=== PATIENT | female | born 1930 ===

== ENCOUNTER 2016-06-07 12:27 | Inpatient (IN) | payer MEDICARE, OTHER ==
[~2016-06-07] VITALS: Ht 149.9 cm; Wt 51.2 kg
[2016-06-07] MEDS ORDERED: LOPERAMIDE 2 MG CAPSULE PO PRN (14:45)
[2016-06-07] MEDS ORDERED: SALINE FLUSH 10 ML FLUSH PRN (14:45)
[2016-06-07] MEDS ORDERED: FLEET ENEMA 132 ML BTL RECTAL PRN (14:45)
[2016-06-07] MEDS ORDERED: BISACODYL EC 5 MG TAB PO PRN (14:45)
[2016-06-07] MEDS ORDERED: ONDANSETRON 4 MG VIAL IV PRN (14:45)
[2016-06-07] MEDS ORDERED: BISACODYL 10 MG SUPP RECTAL PRN (14:45)
[2016-06-07] MEDS ORDERED: GUAIFEN/DM 10 ML UDC PO PRN (14:45)
[2016-06-07] MEDS ORDERED: ALU/MAG/SIM 30 ML UDC PO PRN (14:45)
[2016-06-07] MEDS ORDERED: MAG HYDROX 30 ML UDC PO PRN (14:45)
[2016-06-07] MEDS ORDERED: SODIUM CHLORIDE 0.9% 1,000 ML IV SCH (14:45)
[2016-06-07] MEDS ORDERED: CEFTRIAXONE 1 GM in SODIUM CHLORIDE 0.9% 50 ML IV ONE (14:50)
[2016-06-07] MEDS ORDERED: CEFTRIAXONE 1 GM VIAL ONE (15:19)
[2016-06-07] MEDS ORDERED: SODIUM CHLORIDE 0.9% 500 ML IV ONE (15:19)
[2016-06-07] MEDS ORDERED: ADD HEIGHT/WEIGHT/ALLERGY INFO XX SCH (16:28)
[2016-06-07] MEDS ORDERED: PNEUMO VAC 25 MCG/0.5 ML VL IM.VACC ONE (16:45)
[2016-06-07 16:52] VITALS: BP_SYST 114; RESP 18; TEMP 98.4
[2016-06-07 17:02] VITALS: Ht 149.9 cm; Wt 51.2 kg
[2016-06-07] MEDS: ACETAMINOPHEN 500 MG TAB PO SCH (17:49)
[2016-06-07 19:08] VITALS: BP_SYST 103; RESP 20; TEMP 98.2
[2016-06-07] MEDS ORDERED: SALINE FLUSH 10 ML FLUSH SCH (20:00)
[2016-06-07] MEDS: SACCHA BOULARDII 250MG CAP PO SCH (20:52)
[2016-06-07] MEDS: FAMOTIDINE 20 MG TAB PO SCH (20:53)
[2016-06-07] MEDS: TRAZODONE 50 MG TAB PO SCH (20:53)
[2016-06-07 22:40] VITALS: BP_SYST 118; RESP 18; TEMP 98.1
[2016-06-08] MEDS: ACETAMINOPHEN 500 MG TAB PO SCH ×3 (00:29→15:02)
[2016-06-08 00:52] VITALS: RESP 20
[2016-06-08 02:27] VITALS: BP_SYST 129; RESP 20; TEMP 98.5
[2016-06-08] MEDS ORDERED: SODIUM CHLORIDE 0.9% FLUSH BAG 500 ML IV SCH (06:00)
[2016-06-08 07:21] VITALS: BP_SYST 169; RESP 20; TEMP 98.3
[2016-06-08] MEDS: CEFTRIAXONE 1 GM in SODIUM CHLORIDE 0.9% 50 ML IV SCH (09:14)
[2016-06-08] MEDS: POTASSIUM CHLORIDE IV SCH ×2 (09:15→22:32)
[2016-06-08] MEDS: SACCHA BOULARDII 250MG CAP PO SCH ×2 (09:15→20:33)
[2016-06-08] MEDS: [UNRECOGNIZED DRUG - OTHER] IV SCH ×2 (09:15→22:32)
[2016-06-08] MEDS: DEXTROSE IV SCH ×2 (09:15→22:32)
[2016-06-08 11:30] VITALS: BP_SYST 160; RESP 20; TEMP 98.3
[2016-06-08 15:25] VITALS: BP_SYST 174; RESP 18; TEMP 98.7
[2016-06-08 19:37] VITALS: BP_SYST 162; RESP 16; TEMP 97.5
[2016-06-08] MEDS: FAMOTIDINE 20 MG TAB PO SCH (20:33)
[2016-06-08] MEDS: TRAZODONE 50 MG TAB PO SCH (20:33)
[2016-06-08] MEDS ORDERED: MISSING DOSE XX ONE (20:40)
[2016-06-09] VITALS (7 sets, daily range): BP systolic 104–169; RESP 16–20; TEMP 97.8–98.4
[2016-06-09] MEDS: ACETAMINOPHEN 500 MG TAB PO SCH ×3 (00:44→17:03)
[2016-06-09] MEDS ORDERED: MISSING DOSE XX ONE (06:45)
[2016-06-09] MEDS: SACCHA BOULARDII 250MG CAP PO SCH ×2 (08:17→20:32)
[2016-06-09] MEDS: CEFTRIAXONE 1 GM in SODIUM CHLORIDE 0.9% 50 ML IV SCH (08:18)
[2016-06-09] MEDS: amLODIPine 5 MG TAB PO SCH (11:21)
[2016-06-09] MEDS: POTASSIUM CHLORIDE IV SCH (17:03)
[2016-06-09] MEDS: [UNRECOGNIZED DRUG - OTHER] IV SCH (17:03)
[2016-06-09] MEDS: DEXTROSE IV SCH (17:03)
[2016-06-09] MEDS: FAMOTIDINE 20 MG TAB PO SCH (20:32)
[2016-06-09] MEDS: TRAZODONE 50 MG TAB PO SCH (20:32)
[2016-06-09] MEDS ORDERED: Atorvastatin 10 MG TAB PO SCH (21:00)
[2016-06-10] MEDS: ACETAMINOPHEN 500 MG TAB PO SCH ×2 (00:14→08:39)
[2016-06-10 03:10] VITALS: BP_SYST 148; RESP 18; TEMP 98.5
[2016-06-10] MEDS: POTASSIUM CHLORIDE IV SCH (07:32)
[2016-06-10] MEDS: [UNRECOGNIZED DRUG - OTHER] IV SCH (07:32)
[2016-06-10] MEDS: DEXTROSE IV SCH (07:32)
[2016-06-10 07:53] VITALS: BP_SYST 160; RESP 18; TEMP 98.2
[2016-06-10] MEDS: CEFTRIAXONE 1 GM in SODIUM CHLORIDE 0.9% 50 ML IV SCH (08:34)
[2016-06-10] MEDS: amLODIPine 5 MG TAB PO SCH (08:35)
[2016-06-10] MEDS: SACCHA BOULARDII 250MG CAP PO SCH (08:35)
[2016-06-10 11:51] VITALS: BP_SYST 161; RESP 18; TEMP 97.8
[2016-06-10 13:24] VITALS: BP_SYST 161; RESP 18; TEMP 97.8
[2016-06-10] MEDS ORDERED: MISSING DOSE XX ONE ×2 (14:00→14:55)
== END 2016-06-10 15:21 | disposition home or self-care (01) | DRG 689 ==
LOC: ENRESERVDT → ENRESERVTM → ER 12:27 → ENPENDDIS 16:13 → MERGE 16:13 → 4NT 16:13
PROVIDERS: ADMIT Family Medicine; ATTEND Family Medicine
PROC: 0HBRXZZ Excision of Toe Nail, External Approach (ICD-10-PCS; principal; 2016-06-10)
PROC: 0HBRXZZ Excision of Toe Nail, External Approach (ICD-10-PCS; 2016-06-10)
PROC: 0HBRXZZ Excision of Toe Nail, External Approach (ICD-10-PCS; 2016-06-10)
PROC: 0HBRXZZ Excision of Toe Nail, External Approach (ICD-10-PCS; 2016-06-10)
PROC: 0HBRXZZ Excision of Toe Nail, External Approach (ICD-10-PCS; 2016-06-10)
PROC: 0HBRXZZ Excision of Toe Nail, External Approach (ICD-10-PCS; 2016-06-10)
PROC: 0HBRXZZ Excision of Toe Nail, External Approach (ICD-10-PCS; 2016-06-10)
PROC: 0HBRXZZ Excision of Toe Nail, External Approach (ICD-10-PCS; 2016-06-10)
PROC: 0HBRXZZ Excision of Toe Nail, External Approach (ICD-10-PCS; 2016-06-10)
PROC: 0HBRXZZ Excision of Toe Nail, External Approach (ICD-10-PCS; 2016-06-10)
DX: N39.0 Urinary tract infection, site not specified (principal); G93.41 Metabolic encephalopathy; N17.9 Acute kidney failure, unspecified; E86.0 Dehydration; E87.0 Hyperosmolality and hypernatremia; E87.8 Other disorders of electrolyte and fluid balance, not elsewhere classified; B35.1 Tinea unguium; B96.20 Unspecified Escherichia coli [E. coli] as the cause of diseases classified elsewhere; F03.90 Unspecified dementia, unspecified severity, without behavioral disturbance, psychotic disturbance, mood disturbance, and anxiety; D64.9 Anemia, unspecified; I10 Essential (primary) hypertension; L60.2 Onychogryphosis; Z85.828 Personal history of other malignant neoplasm of skin; M19.90 Unspecified osteoarthritis, unspecified site
CPT/HCPCS: 36415; 71010; 71020; 80048; 80053; 81001; 82607; 82746; 82947; 83605; 83735; 84100; 84439; 84443; 85025; 85610; 87040; 87077; 87088; 87186; 87804; 90732; 93005; 94799; 96374; 99223; 99232; 99233; 99239